=== PATIENT | female | born 1975 | race Caucasian/White ===

== ENCOUNTER 2016-09-06 16:29 | Emergency (ER) | payer BC, OTHER ==
[~2016-09-06] VITALS: Ht 162.6 cm; Wt 110.0 kg
[~2016-09-06 16:29] MED LIST: ALPR0.5T99 PO; CLEO300C2 PO; METF-324 PO; OXYC-360 PO; levamir SC
[2016-09-06 16:30] VITALS: BP 134/83; PULSE 92; RESP 20; TEMP 97.8; O2SAT 98
[2016-09-06] MEDS ORDERED: ORPHENADRINE INJ 60 MG/2 ML AMP IM ONE (17:00)
[2016-09-06] MEDS ORDERED: KETOROLAC TROMETHAMINE 60 MG/2 ML (IM) VIAL IM ONE (17:00)
[2016-09-06] MEDS ORDERED: EMPA1TAB3 PO (17:06)
[2016-09-06] MEDS ORDERED: ACYC400T PO (17:06)
[2016-09-06] MEDS ORDERED: HUMALOG SQ (17:06)
[2016-09-06] MEDS ORDERED: LYRI200C PO (17:06)
[2016-09-06] MEDS ORDERED: METF1000 PO (17:06)
[2016-09-06] MEDS ORDERED: ALPR1TAB3 PO (17:06)
[2016-09-06] MEDS ORDERED: GLIP10TA6 PO (17:06)
--- NOTE | 2016-09-06 17:09 | PD ---
HPI Chief Complaint: Musculoskeletal Complaint Time Seen by Provider: 17:05 (Shantel Perla) Time Seen by Provider: 17:09 (Deborah Campoverde MD) Travel History International Travel<30 days: No Contact w/Intl Traveler<30days: No Traveled to known affect area: No (Shantel Perla) History of Present Illness HPI The patient is a 41-year-old female presenting to the emergency department for evaluation of left harris pain. Patient [place] the [place] a [place] when she was walking and felt a pull. She states it's cramping and ripping in nature. At rest the pain is a 4 out of 10, it exacerbated with walking and flexing her foot. She denies any numbness, tingling, swelling, redness to her lower extremity. Patient does not take any medications to alleviate the pain prior to arrival. (Shantel Perla) PFSH Past Medical History Anxiety: Yes Depression: Yes Diabetes: Yes Patient Takes Glucophage: Yes Diminished Hearing: No Gastrointestinal Disorders: Yes (Crohn's disease) Headaches: Yes Neurologic: Yes (diabetic neuropathy) Migraines: Yes Tetanus Vaccination: < 5 Years ?: Not : 2 Para: 2 Tubal Ligation: Yes (Shantel Perla) Past Surgical History Section: Yes Cholecystectomy: Yes Hysterectomy: Yes Tonsillectomy: Yes (Shantel Perla) Social History Alcohol Use: No Tobacco Use: No Substance Use: No (Shantel Perla) Allergies-Medications (Allergen,Severity, Reaction): Coded Allergies: Morphine (Verified Allergy, Severe, HIVES, 09/06/16) Reported Meds & Prescriptions Reported Meds & Active Scripts Active Flexeril (Cyclobenzaprine HCl) 10 Mg Tab 10 Mg PO TID PRN 7 Days Ibuprofen 800 Mg Tab 800 Mg PO Q8H PRN 7 Days Reported Humalog Inj (Insulin Human Lispro) 1,000 Unit/10 Ml Vial 5-25 Units SQ ACHS Max dose at bedtime:( )units; sugars < 70,(0)units; sugars 150-199,(5)units; sugars 200-249,(10)units; sugars 250-299,(15)units; sugars 300-349,(20)units; sugars more than 349,(25)units. Glipizide 10 Mg Tab 10 Mg PO BIDAC Take 30 minutes before a meal Lyrica (Pregabalin) 200 Mg Cap 200 Mg PO TID Jardiance (Empagliflozin) 25 Mg Tab 25 Mg PO DAILY Acyclovir 400 Mg Tab 400 Mg PO DAILY Metformin (Metformin HCl) 1,000 Mg Tab 1,000 Mg PO BIDPC With meals Alprazolam 1 Mg Tab 1 Mg PO Q8H PRN (Deborah Campoverde MD) Review of Systems Except as stated in HPI: all other systems reviewed are Neg Musculoskeletal: Positive: Myalgias, Cramping, Pain, No: Edema Skin: No Change in Pigmentation (Shantel Perla) Physical Exam Narrative GENERAL: Overweight, well-developed, alert female. Resting comfortably in no acute distress. SKIN: Focused skin assessment warm/dry. HEAD: Atraumatic. Normocephalic. EYES: Pupils equal and round. No scleral icterus. No injection or drainage. ENT: No nasal bleeding or discharge. Mucous membranes pink and moist. NECK: Trachea midline. No JVD. CARDIOVASCULAR: Regular rate and rhythm. No murmur appreciated. RESPIRATORY: No accessory muscle use. Clear to auscultation. Breath sounds equal bilaterally. GASTROINTESTINAL: Abdomen soft, non-tender, nondistended. Hepatic and splenic margins not palpable. MUSCULOSKELETAL: No obvious deformities. No clubbing. No cyanosis. No edema. Negative Homans sign on the left, 2+ dorsalis pedis pulse, brisk is increasing capillary refill. No erythema noted to left lower leg. Tenderness to palpation to the left harris on the lateral aspect just distal to the knee. NEUROLOGICAL: Awake and alert. No obvious cranial nerve deficits. Motor grossly within normal limits. Normal speech. PSYCHIATRIC: Appropriate mood and affect; insight and judgment normal. (Shantel Perla) Data Data Last Documented VS Vital Signs Date Time Temp Pulse Resp B/P Pulse Ox O2 Delivery O2 Flow Rate FiO2 09/06/16 16:30 97.8 92 20 134/83 98 Room Air (Deborah Campoverde MD) Orders Ketorolac Inj (Toradol Inj) (09/06/16 17:00) Orphenadrine Inj (Norflex Inj) (09/06/16 17:00) (Deborah Campoverde MD) [facility] Medical Decision Making Medical Screen Exam Complete: Yes Emergency Medical Condition: Yes Interpretation(s) Vital Signs Date Time Temp Pulse Resp B/P Pulse Ox O2 Delivery O2 Flow Rate FiO2 09/06/16 16:30 97.8 92 20 134/83 98 Room Air Differential Diagnosis Muscle strain versus sprain versus spasm Narrative Course Patient is a 41-year-old female presenting to the emergency evaluation of left leg pain that started abruptly while she was walking at lunchtime today. There was no injury or trauma. Pain is to the upper anterior/lateral aspect of the left lower leg. There was negative Homans sign, patient is neurovascularly intact, there is no edema or erythema noted. Patient has increased pain with flexion of her foot. Physical examination appears most consistent with muscle strain, muscle spasm. Patient was given Norflex and Toradol in the emergency department, she did not get an injection of dexamethasone due to being diabetic. Patient's vital signs are stable. She was encouraged to apply warm moist heat to the affected area, continue range of motion exercises, take medications as directed and follow up with her primary doctor. She was encouraged return to emergency department immediately for any new or worsening symptoms. Patient verbalized understanding of instructions. Patient stable for discharge. (Shantel Perla) Diagnosis Primary Impression: Muscle spasm Referrals: Primary Care Physician Patient Instructions: General Instructions, Muscle Spasm (ED), Muscle Strain ( ED) Additional Instructions: Follow-up with your primary doctor Take medications as directed Apply warm moist heat to the affected area, continue range of motion exercises, avoid exacerbating activities Return to emergency department for any new or worsening symptoms Med/Other Pt SpecificInfo: Prescription(s) given (Shantel Perla) Scripts Cyclobenzaprine (Flexeril)10 Mg Tab10 Mg PO TID PRN (MUSCLE SPASM) 7 Days Ref 0 Prov:Shantel Perla 09/06/16 Ibuprofen 800 Mg [id number] Mg PO Q8H PRN (Pain/Inflammation) 7 Days Ref 0 Prov:Shantel Perla 09/06/16 Disposition: 01 DISCHARGE HOME Condition: Stable Shantel Perla Sep 06, 2016 17:09 Deborah Campoverde MD Sep 07, 2016 08:00
[2016-09-06] MEDS ORDERED: CYCL1TAB29 PO (18:06)
[2016-09-06] MEDS ORDERED: IBUP800T23 PO (18:06)
== END 2016-09-06 18:28 | disposition home or self-care (01) ==
LOC: NEPD 16:29
DX: M62.838 Other muscle spasm (principal)
CPT/HCPCS: 96372; 99284; J1885; J2360

== ENCOUNTER 2016-09-13 01:33 | Emergency (ER) | payer BC ==
[~2016-09-13] VITALS: Ht 162.6 cm; Wt 110.0 kg
[~2016-09-13 01:33] MED LIST changes: +ACYC400T PO; -ALPR0.5T99 PO; +ALPR1TAB3 PO; -CLEO300C2 PO; +CYCL1TAB29 PO; +EMPA1TAB3 PO; +GLIP10TA6 PO; +HUMALOG SQ; +IBUP800T23 PO; +LYRI200C PO; -METF-324 PO; +METF1000 PO; -OXYC-360 PO; -levamir SC
[2016-09-13 03:37] VITALS: BP 146/90; PULSE 102; RESP 16; TEMP 98.3; O2SAT 98
[2016-09-13] MEDS ORDERED: HYDROmorphone HCL PF 1 MG/ML VIAL IVS ONE (03:45)
[2016-09-13] MEDS ORDERED: ONDANSETRON HCL 4 MG/2 ML VIAL IVP ONE (03:45)
[2016-09-13] MEDS ORDERED: HYDR-3534 PO (04:35)
[2016-09-13] MEDS ORDERED: ZOFR4TAB3 SL (04:35)
[2016-09-13] MEDS ORDERED: CIPR500T2 PO (04:35)
--- NOTE | 2016-09-13 04:36 | PD ---
HPI Chief Complaint: Headache Time Seen by Provider: 03:33 Travel History International Travel<30 days: No Contact w/Intl Traveler<30days: No Traveled to known affect area: No History of Present Illness HPI C/O 2 DAY OF MCKENZIE, FRONTAL, NONRAD, 11/15 CURRENTLY, SOME NAUSEA, DENIES PHOTOPHOBIA/V/D/FEVER PFSH Past Medical History Anxiety: Yes Depression: Yes Cardiovascular Problems: Yes (CORORONARY ARTERY STENOSIS) Diabetes: Yes Diminished Hearing: No Gastrointestinal Disorders: Yes (Crohn's disease) Headaches: Yes Neurologic: Yes (diabetic neuropathy) Migraines: Yes : 2 Para: 2 Tubal Ligation: Yes Past Surgical History Section: Yes Cholecystectomy: Yes Hysterectomy: Yes Tonsillectomy: Yes Social History Alcohol Use: No Tobacco Use: No Substance Use: No Allergies-Medications (Allergen,Severity, Reaction): Coded Allergies: Morphine (Verified Allergy, Severe, HIVES, 09/13/16) Toradol (Verified Allergy, Severe, Rash, 09/13/16) Reported Meds & Prescriptions Reported Meds & Active Scripts Active Zofran Odt (Ondansetron Odt) 4 Mg Tab 4 Mg SL Q6HR PRN Lortab (Hydrocodone-Acetaminophen) 7.5-325 Mg Tab 1 Tab PO Q6H PRN Ciprofloxacin (Ciprofloxacin HCl) 500 Mg Tab 500 Mg PO BID Reported Humalog Inj (Insulin Human Lispro) 1,000 Unit/10 Ml Vial 5-25 Units SQ ACHS Max dose at bedtime:( )units; sugars < 70,(0)units; sugars 150-199,(5)units; sugars 200-249,(10)units; sugars 250-299,(15)units; sugars 300-349,(20)units; sugars more than 349,(25)units. Glipizide 10 Mg Tab 10 Mg PO BIDAC Take 30 minutes before a meal Lyrica (Pregabalin) 200 Mg Cap 200 Mg PO TID Jardiance (Empagliflozin) 25 Mg Tab 25 Mg PO DAILY Acyclovir 400 Mg Tab 400 Mg PO DAILY Metformin (Metformin HCl) 1,000 Mg Tab 1,000 Mg PO BIDPC With meals Alprazolam 1 Mg Tab 1 Mg PO Q8H PRN Review of Systems Except as stated in HPI: all other systems reviewed are Neg HENT: Positive: Headaches Physical Exam Narrative GENERAL: SKIN: Warm and dry. HEAD: Atraumatic. Normocephalic. EYES: Pupils equal and round. No scleral icterus. No injection or drainage. ENT: No nasal bleeding or discharge. Mucous membranes pink and moist. TTP OVER RIGHT MAXILLARY NECK: Trachea midline. No JVD. CARDIOVASCULAR: Regular rate and rhythm. RESPIRATORY: No accessory muscle use. Clear to auscultation. Breath sounds equal bilaterally. GASTROINTESTINAL: Abdomen soft, non-tender, nondistended. Hepatic and splenic margins not palpable. MUSCULOSKELETAL: Extremities without clubbing, cyanosis, or edema. No obvious deformities. NEUROLOGICAL: Awake and alert. No obvious cranial nerve deficits. Motor grossly within normal limits. Five out of 5 muscle strength in the arms and legs. Normal speech. PSYCHIATRIC: Appropriate mood and affect; insight and judgment normal. Data Data Last Documented VS Vital Signs Date Time Temp Pulse Resp B/P Pulse Ox O2 Delivery O2 Flow Rate FiO2 09/13/16 05:57 89 18 138/85 96 09/13/16 03:[address] Brain W/O Iv Contrast(Rout) (09/13/16 03:33) Ecg Monitoring (09/13/16 03:33) Iv Access Insert/Monitor (09/13/16 03:33) Oximetry (09/13/16 03:33) Ondansetron Inj (Zofran Inj) (09/13/16 03:45) Hydromorphone Pf Inj (Dilaudid Pf Inj) (09/13/16 03:45) Hydromorphone Pf Inj (Dilaudid Pf Inj) (09/13/16 05:00) [facility] Medical Decision Making Medical Screen Exam Complete: Yes Emergency Medical Condition: Yes Medical Record Reviewed: Yes Differential Diagnosis ICH V TENSION MCKENZIE V SINUS Narrative Course PT WAS EVALUATED, CT NEG FOR ICH OR SINUSITIS, PAIN CONTROLLED AND PT EXPRESSES GREAT RELIEF Diagnosis Primary Impression: SINUS HEADACHE Patient Instructions: General Instructions, Sinusitis (ED) Scripts Ondansetron Odt (Zofran Odt)4 Mg Tab4 Mg SL Q6HR PRN (Nausea/Vomiting) #12 TAB Prov:Dennys Reynolds MD 09/13/16 Hydrocodone-Acetaminophen (Lortab)7.5-325 Mg Tab1 Tab PO Q6H PRN (PAIN) #20 TAB Prov:Dennys Reynolds MD 09/13/16 Ciprofloxacin 500 Mg Exq543 Mg PO BID #14 TAB Prov:Dennys Reynolds MD 09/13/16 Disposition: 01 DISCHARGE HOME Condition: Stable Dennys Reynolds MD Sep 13, 2016 04:35
--- NOTE | 2016-09-13 04:51 | RADRPT ---
EXAM DATE/TIME: 09/13/2016 03:55 [facility] COMPARISON: No previous studies available for comparison. INDICATIONS : Cephalgia. RADIATION DOSE: 35.68 CTDIvol (mGy) MEDICAL HISTORY : Diabetes mellitus type 2. Crohns disease. Carotid stenosis. SURGICAL HISTORY : Cholecystectomy. Hysterectomy.Tubal ligation. section. ENCOUNTER: Initial ACUITY: 1 day PAIN SCALE: 6/10 LOCATION: cranial TECHNIQUE: Multiple contiguous axial images were obtained of the head. Using automated exposure control and adj ustment of the mA and/or kV according to patient size, radiation dose was kept as low as reasonably a chievable to obtain optimal diagnostic quality images. DICOM format image data is available electro nically for review and comparison. FINDINGS: CEREBRUM: The ventricles are normal for age. No evidence of midline shift, mass lesion, hemorrhage or acute in farction. No extra-axial fluid collections are seen. POSTERIOR FOSSA: The cerebellum and brainstem are intact. The 4th ventricle is midline. The cerebellopontine angle i s unremarkable. EXTRACRANIAL: The visualized portion of the orbits is intact. SKULL: The calvaria is intact. No evidence of skull fracture. CONCLUSION: No acute intracranial abnormality. Jani Curry MD on September 13, 2016 at 4:48 Board Certified Radiologist. This report was verified electronically.
[2016-09-13] MEDS ORDERED: HYDROmorphone HCL PF 1 MG/ML VIAL IV PUSH ONE (05:00)
[2016-09-13 05:57] VITALS: BP 138/85
== END 2016-09-13 06:02 | disposition home or self-care (01) ==
LOC: NEPC 01:33
DX: R51 Headache (principal); R11.0 Nausea; F41.9 Anxiety disorder, unspecified; F32.9 Major depressive disorder, single episode, unspecified; K50.90 Crohn's disease, unspecified, without complications; E11.40 Type 2 diabetes mellitus with diabetic neuropathy, unspecified; Z79.4 Long term (current) use of insulin; Z79.899 Other long term (current) drug therapy
CPT/HCPCS: 70450; 96374; 96375; 96376; 99285; J1170; J2405